=== PATIENT | female | born 2000 | race American Indian/Alaskan Native ===

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

== ENCOUNTER 2020-08-18 16:30 | Emergency (ER) | payer SELFPAY ==
[2020-08-18 16:38] VITALS: BP 99/58
--- NOTE | 2020-08-18 20:49 | Emergency Department Report ---
ED Female HPI - General Chief complaint: Urogenital-Female Stated complaint: VAGINAL DISCHARGE Time Seen by Provider: 08/18/20 20:06 Source: patient Mode of arrival: Ambulatory Limitations: No Limitations - History of Present Illness Initial comments: Patient 19-year-old -[place] female who presents for vaginal discharge itching x3 weeks. discharge clear / white. pt states hx of BV. Patient denies fevers chills no nausea vomiting no abdominal pain. No back pain. She denies dysuria frequency or urgency no hematuria. Mild LMP 2 weeks ago. Patient denies sexual activity. There are no exacerbating or relieving factors. MD Complaint: vaginal discharge - Related Data Previous Rx's Medication Instructions Recorded Last Taken Type Fluticasone [Flonase] 1 spray NS QDAY #1 bottle 01/23/15 Unknown Rx Ciprofloxacin HCl [Ciprofloxacin 500 mg PO Q12H 3 Days tab 09/01/15 Unknown Rx TAB] Ibuprofen [Motrin 600 MG tab] 600 mg PO TID PRN #60 tablet 07/20/17 Unknown Rx metroNIDAZOLE [Flagyl] 500 mg PO Q12HR 7 Days #14 tab 08/18/20 Unknown Rx Allergies Allergy/AdvReac Type Severity Reaction Status Date / Time No Known Allergies Allergy Unverified 07/20/17 15:23 ED Review of Systems ROS: Stated complaint: VAGINAL DISCHARGE Other details as noted in HPI Constitutional: denies: chills, fever Eyes: denies: eye pain, eye discharge, vision change ENT: denies: ear pain, throat pain Respiratory: denies: cough, shortness of breath, wheezing Cardiovascular: denies: chest pain, palpitations Endocrine: no symptoms reported Gastrointestinal: denies: abdominal pain, nausea, vomiting, diarrhea Genitourinary: discharge (clear white). denies: urgency, dysuria, frequency, hematuria, abnormal menses Musculoskeletal: denies: back pain, joint swelling, arthralgia Skin: denies: rash, lesions Neurological: denies: headache, weakness, paresthesias Psychiatric: denies: anxiety, depression Hematological/Lymphatic: denies: easy bleeding, easy bruising ED Past Medical Hx - Past Medical History Previous Medical History?: No - Surgical History Past Surgical History?: No - Social History Smoking Status: Never Smoker - Medications Home Medications: Home Medications Medication Instructions Recorded Confirmed Last Taken Type Fluticasone [Flonase] 1 spray NS QDAY #1 bottle 01/23/15 Unknown Rx Ciprofloxacin HCl [Ciprofloxacin 500 mg PO Q12H 3 Days tab 09/01/15 Unknown Rx TAB] Ibuprofen [Motrin 600 MG tab] 600 mg PO TID PRN #60 tablet 07/20/17 Unknown Rx metroNIDAZOLE [Flagyl] 500 mg PO Q12HR 7 Days #14 tab 08/18/20 Unknown Rx ED Physical Exam - General Limitations: No Limitations General appearance: alert, in no apparent distress - Head Head exam: Present: atraumatic, normocephalic - Eye Eye exam: Present: normal appearance - ENT ENT exam: Present: mucous membranes moist - Neck Neck exam: Present: normal inspection - Respiratory Respiratory exam: Present: normal lung sounds bilaterally. Absent: respiratory distress - Cardiovascular Cardiovascular Exam: Present: regular rate, normal rhythm. Absent: systolic murmur, diastolic murmur, rubs, gallop - GI/Abdominal GI/Abdominal exam: Present: soft, normal bowel sounds. Absent: distended, tenderness, guarding, rebound, rigid, bruit, hernia - Rectal Rectal exam: Present: deferred - External exam: Present: other (pt defers exam ) - Extremities Exam Extremities exam: Present: normal inspection, full ROM, normal capillary refill. Absent: tenderness - Back Exam Back exam: Present: normal inspection, full ROM. Absent: tenderness, CVA tenderness (R), CVA tenderness (L) - Neurological Exam Neurological exam: Present: alert, oriented X3 - Psychiatric Psychiatric exam: Present: normal affect, normal mood - Skin Skin exam: Present: warm, dry, intact, normal color. Absent: rash ED Course Vital Signs 08/18/20 16:34 Temperature 98.6 F Pulse Rate 89 Respiratory 18 Rate Blood Pressure 99/58 Blood Pressure 98/55 [Right] O2 Sat by Pulse 100 Oximetry ED Medical Decision Making - Lab Data Labs 08/18/20 21:30 Urine Color Yellow Urine Turbidity Clear Urine pH 5.0 Ur Specific [place] 1.023 Urine Protein <15 mg/dl Urine Glucose (UA) Neg Urine Ketones Neg Urine Blood Neg Urine Nitrite Neg Ur Reducing Substances Not Reportable Urine Bilirubin Neg Urine Ictotest Not Reportable Urine Urobilinogen < 2.0 Ur Leukocyte Esterase Neg Urine WBC (Auto) 1.0 Urine RBC (Auto) 2.0 U Epithel Cells (Auto) 1.0 Urine Mucus 1+ Urine HCG, Qual Negative - Medical Decision Making UA normal, plan flagyl po, follow up with [facility] in 2-3 days, pt verbalized agreement and understanding of discharge plan. pt dc'd to home in stable condition at this time. Critical care attestation.: If time is entered above; I have spent that time in minutes in the direct care of this critically ill patient, excluding procedure time. ED Disposition Clinical Impression: Vaginitis Qualifiers: Chronicity: acute Qualified Code(s): N76.0 - Acute vaginitis Disposition: DC-01 TO HOME OR SELFCARE Is pt being admited?: No Does the pt Need Aspirin: No Condition: Stable Instructions: Vaginitis (ED) Prescriptions: metroNIDAZOLE [Flagyl] 500 mg PO Q12HR 7 Days #14 tab Referrals: FIORELLA HO MD [Staff Physician] - 3-5 Days Forms: Work/School Release Form(ED) Time of Disposition: 22:43
[2020-08-18 22:07] LABS: HCG Qualitative,Urine Negative (Negative)
[2020-08-18 22:08] LABS: Bilirubin,Urine NEG (Negative); Blood,Urine NEG (Negative); Color,Urine Yellow (Yellow); Mucus,Urine 1+ /HPF; Protein,Urine <15 mg/dL mg/dL (Negative); Urobilinogen,Urine < 2.0 mg/dL (<2.0)
== END 2020-08-18 22:56 | disposition home or self-care (01) ==
LOC: ED 16:30
DX: N76.0 Acute vaginitis (principal)
CPT/HCPCS: 81001; 81025; 99283

== ENCOUNTER 2021-08-03 09:04 | Emergency (ER) | payer SELFPAY ==
--- NOTE | 2021-08-03 09:41 | Emergency Department Report ---
ED Abdominal Pain HPI - General Chief Complaint: Abdominal Pain Stated Complaint: UPPER ABD,BACKPAIN,CHEST PRESSURE PUI?: No Time Seen by Provider: 08/03/21 09:39 Source: patient Mode of arrival: Ambulatory Limitations: No Limitations - History of Present Illness Initial Comments: 20 yo comes to ER co abd pain - suprapubic area. No hematuria; no vag bleeding; no fever or chills; no vag discharge endorses burning with urination LMP this week MD Complaint: abdominal pain -: Gradual, days(s) Location: suprapubic Radiation: none Severity: mild Severity scale (0 -10): 1 Quality: aching Consistency: intermittent Improves With: nothing Worsens With: nothing Associated Symptoms: denies other symptoms. denies: nausea, vomiting, diarrhea, fever, chills, constipation, dysuria, hematemesis, hematochezia, melena, hematuria, anorexia, syncope - Related Data LMP (females 10-50): this week Previous Rx's Medication Instructions Recorded Last Taken Type Ibuprofen [Motrin] 800 mg PO Q8HR PRN #30 tablet 08/03/21 Unknown Rx Sulfamethoxazole/Trimethoprim 1 each PO BID #10 tablet 08/03/21 Unknown Rx [Bactrim DS TAB] Allergies Allergy/AdvReac Type Severity Reaction Status Date / Time No Known Allergies Allergy Unverified 07/20/17 15:23 ED Review of Systems ROS: Stated complaint: UPPER ABD,BACKPAIN,CHEST PRESSURE Other details as noted in HPI Comment: All other systems reviewed and negative ED Past Medical Hx - Past Medical History Previous Medical History?: No - Surgical History Past Surgical History?: No - Family History Family history: no significant - Social History Smoking Status: Never Smoker Substance Use Type: Marijuana - Medications Home Medications: Home Medications Medication Instructions Recorded Confirmed Last Taken Type Ibuprofen [Motrin] 800 mg PO Q8HR PRN #30 tablet 08/03/21 Unknown Rx Sulfamethoxazole/Trimethoprim 1 each PO BID #10 tablet 08/03/21 Unknown Rx [Bactrim DS TAB] ED Physical Exam - General Limitations: No Limitations General appearance: alert, in no apparent distress - Head Head exam: Present: atraumatic, normocephalic - Eye Eye exam: Present: normal appearance - ENT ENT exam: Present: mucous membranes moist - Neck Neck exam: Present: normal inspection - Respiratory Respiratory exam: Present: normal lung sounds bilaterally. Absent: respiratory distress - Cardiovascular Cardiovascular Exam: Present: regular rate, normal rhythm. Absent: systolic murmur, diastolic murmur, rubs, gallop - GI/Abdominal GI/Abdominal exam: Present: soft, normal bowel sounds - Extremities Exam Extremities exam: Present: normal inspection - Back Exam Back exam: Present: normal inspection - Neurological Exam Neurological exam: Present: alert, oriented X3 - Psychiatric Psychiatric exam: Present: normal affect, normal mood - Skin Skin exam: Present: warm, dry, intact, normal color. Absent: rash ED Course Vital Signs 08/03/21 08/03/21 09:34 12:53 Temperature 97.6 F Pulse Rate 62 48 L Respiratory 16 18 Rate Blood Pressure 94/67 96/64 [Right] O2 Sat by Pulse 100 100 Oximetry - Reevaluation(s) Reevaluation #1: 08/03/21 11:43 lmp 3 days ago ED Medical Decision Making - Lab Data Result diagrams: 08/03/21 10:40 08/03/21 10:40 - Radiology Data Radiology results: report reviewed, image reviewed nap - Medical Decision Making ua noted Labs 08/03/21 Unknown Urine Color Yellow Urine Turbidity Clear Urine pH 5.0 Ur Specific [place] 1.031 H Urine Protein 30 mg/dl Urine Glucose (UA) Neg Urine Ketones Neg Urine Blood Sm Urine Nitrite Pos Ur Reducing Substances Not Reportable Urine Bilirubin Neg Urine Ictotest Not Reportable Urine Urobilinogen 2.0 Ur Leukocyte Esterase Neg Urine WBC (Auto) 1.0 Urine RBC (Auto) 1.0 U Epithel Cells (Auto) 1.0 Urine Mucus 3+ Urine HCG, Qual Negative 1L ns/rocpehin given xray nap on reeval- taking po dc home with dc plan of care including diet, activity, follow up. Pt verbalizes understanding. - Differential Diagnosis ro uti/preg/constipation/uri Critical care attestation.: If time is entered above; I have spent that time in minutes in the direct care of this critically ill patient, excluding procedure time. ED Disposition Clinical Impression: UTI (urinary tract infection) Disposition: 01 HOME / SELF CARE / HOMELESS Is pt being admited?: No Does the pt Need Aspirin: No Condition: Stable Instructions: Urinary Tract Infection, Adult, [id number], Abdominal Pain (ED) Additional Instructions: stay well hydrated with water motrin and or tylenol for pain med as ordered today urinate after sex follow up with pcp next week to be sure you are getting better your chest xray was normal today Prescriptions: Sulfamethoxazole/Trimethoprim [Bactrim DS TAB] 1 each PO BID #10 tablet Ibuprofen [Motrin] 800 mg PO Q8HR PRN #30 tablet PRN Reason: Pain, Moderate (4-6) Referrals: ZENIA LIZAMA MD [Staff Physician] - 3-5 Days Time of Disposition: 11:40
[2021-08-03 10:01] LABS: HCG Qualitative,Urine Negative (Negative)
[2021-08-03 10:02] LABS: Bilirubin,Urine NEG (Negative); Blood,Urine SM (Negative); Color,Urine Yellow (Yellow); Mucus,Urine 3+ /HPF
[2021-08-03] MEDS ORDERED: SODIUM CHLORIDE 0.9% 1000 ML 1,000 ML IV ONE (10:18)
[2021-08-03] MEDS ORDERED: cefTRIAXone/NS 1 GM/50 ML 1 GM/50 ML BAG IV ONE (10:18)
--- NOTE | 2021-08-03 11:26 | XRay Report ---
Abdominal series with chest x-ray HISTORY: Chest pain COMPARISON: None. IMPRESSION: Single view of the chest demonstrates normal heart and mediastinal structures and clear l ungs. Supine and upright views of the abdomen demonstrate a normal bowel gas pattern. No evidence for obstruction, free air or pathologic calcifications. Unremarkable exam. Signer Name: Ricci Guillory Jr, MD Signed: 08/03/2021 11:21 AM Workstation Name: [id number]
[2021-08-03 11:52] LABS: Hematocrit 34.7 % (30.3-42.9); Hemoglobin 11.5 gm/dl (10.1-14.3); Mean Corpuscular HGB Conc 33 % (30-34); Mean Corpuscular Volume 83 fl (79-97); Platelet Count 213 K/mm3 (140-440); Red Blood Count 4.18 M/mm3 (3.65-5.03); Red Cell Distribution Width 14.3 % (13.2-15.2)
[2021-08-03 11:57] LABS: Blood Urea Nitrogen 15 mg/dL (7-17); Calcium 9.7 mg/dL (8.4-10.2); Hemolysis Index 2
[2021-08-03 11:59] LABS: BUN/Creatinine Ratio 21
[2021-08-03 18:20] VITALS: BP 96/64
== END 2021-08-03 12:53 | disposition home or self-care (01) ==
LOC: ED 09:04
DX: N39.0 Urinary tract infection, site not specified (principal); F12.90 Cannabis use, unspecified, uncomplicated; Z79.899 Other long term (current) drug therapy
CPT/HCPCS: 36415; 74022; 80048; 81001; 81025; 85027; 87086; 96365; 99284; J0696; J7030

== ENCOUNTER 2022-03-17 12:03 | Emergency (ER) | payer SELFPAY ==
--- NOTE | 2022-03-17 20:26 | Event Note ---
Date: 03/17/22 Medical screening examination note: 21-year-old female, presenting to the ER with request for test, and STD check. The patient denies physical pain, and urinary symptoms. She reports a new male sex partner, who intermittently uses condoms. She denies physical pain. Awake alert oriented in no acute distress, ambulating with a steady gait, seen to be on cellular phone. Check test and UA. STD testing can be done as an outpatient with primary care, or health department. She does not appear to have emergent medical condition present at this time. Detailed history and physical to be performed by oncoming provider, to follow-up on UA and test Vital Signs 03/17/22 12:20 Temperature 98.8 F Pulse Rate 71 Respiratory 18 Rate Blood Pressure 110/46 [Right] O2 Sat by Pulse 98 Oximetry
[2022-03-17 20:36] LABS: Bilirubin,Urine NEG (Negative); Blood,Urine NEG (Negative); Color,Urine Straw (Yellow); Protein,Urine <15 mg/dL mg/dL (Negative); Urobilinogen,Urine < 2.0 mg/dL (<2.0)
[2022-03-17 20:37] LABS: HCG Qualitative,Urine Negative (Negative)
[2022-03-17 20:40] LABS: RBC,Urine < 1.0 /HPF (0.0-6.0)
--- NOTE | 2022-03-17 21:20 | Emergency Department Report ---
ED Female HPI - General Chief complaint: Urogenital-Female Stated complaint: STD CHECK Source: patient Mode of arrival: Ambulatory Limitations: No Limitations - History of Present Illness Initial comments: 21-year-old female presents to the ED complaining fishy foul odor smell. She states that she had unprotected sex with a new sex partner x2 weeks ago. Patient denies any vaginal discharge , dysuria or abdominal pain at present. - Related Data Previous Rx's Medication Instructions Recorded Last Taken Type Ibuprofen [Motrin] 800 mg PO Q8HR PRN #30 tablet 08/03/21 Unknown Rx Sulfamethoxazole/Trimethoprim 1 each PO BID #10 tablet 08/03/21 Unknown Rx [Bactrim DS TAB] metroNIDAZOLE [Flagyl TAB] 500 mg PO Q12HR 7 Days #14 tab 03/17/22 Unknown Rx Allergies Allergy/AdvReac Type Severity Reaction Status Date / Time No Known Allergies Allergy Unverified 07/20/17 15:23 ED Review of Systems ROS: Stated complaint: STD CHECK Other details as noted in HPI ED Past Medical Hx - Social History Smoking Status: Never Smoker Substance Use Type: Marijuana - Medications Home Medications: Home Medications Medication Instructions Recorded Confirmed Last Taken Type Ibuprofen [Motrin] 800 mg PO Q8HR PRN #30 tablet 08/03/21 Unknown Rx Sulfamethoxazole/Trimethoprim 1 each PO BID #10 tablet 08/03/21 Unknown Rx [Bactrim DS TAB] metroNIDAZOLE [Flagyl TAB] 500 mg PO Q12HR 7 Days #14 tab 03/17/22 Unknown Rx ED Physical Exam - General Limitations: No Limitations ED Course Vital Signs 03/17/22 12:20 Temperature 98.8 F Pulse Rate 71 Respiratory 18 Rate Blood Pressure 110/46 [Right] O2 Sat by Pulse 98 Oximetry Critical care attestation.: If time is entered above; I have spent that time in minutes in the direct care of this critically ill patient, excluding procedure time. ED Disposition Clinical Impression: Bacterial vaginosis Disposition: 01 HOME / SELF CARE / HOMELESS Is pt being admited?: No Does the pt Need Aspirin: No Condition: Stable Instructions: Bacterial Vaginosis (ED), Bacterial Vaginosis, [id number], Bacterial Vaginosis Additional Instructions: Take medication as prescribed Return to the ED for any worsening symptom Prescriptions: metroNIDAZOLE [Flagyl TAB] 500 mg PO Q12HR 7 Days #14 tab Referrals: [facility] [Provider Group] - 3-5 Days Forms: STI Treatment and Prevention, Work/School Release Form(ED) Time of Disposition: 21:18
[2022-03-17 21:25] VITALS: BP 110/50
== END 2022-03-17 21:24 | disposition home or self-care (01) ==
LOC: ED 12:03
DX: N76.0 Acute vaginitis (principal); B96.89 Other specified bacterial agents as the cause of diseases classified elsewhere; F12.90 Cannabis use, unspecified, uncomplicated; Z79.899 Other long term (current) drug therapy
CPT/HCPCS: 81001; 81025; 87210; 99283